=== PATIENT | female | born 1960 | race Caucasian/White ===

== ENCOUNTER 2017-11-02 17:04 | Emergency (ER) | payer MEDICAID ==
[~2017-11-02] VITALS: Ht 175.3 cm; Wt 64.4 kg
[~2017-11-02 17:04] MED LIST: AZIT250T PO; NAPR-1154 PO
[2017-11-02 17:11] VITALS: BP 159/76
[2017-11-02] MEDS ORDERED: PHE12.5T PO (19:10)
[2017-11-02] MEDS ORDERED: CHLO25CA10 PO (19:10)
[2017-11-02] MEDS ORDERED: chlordiazePOXIDE 25mg capsule PO ONE (19:10)
== END 2017-11-02 19:34 | disposition home or self-care (01) ==
LOC: ER 17:05
DX: F10.229 Alcohol dependence with intoxication, unspecified (principal); F17.200 Nicotine dependence, unspecified, uncomplicated; G89.29 Other chronic pain; Z88.8 Allergy status to other drugs, medicaments and biological substances; Z79.899 Other long term (current) drug therapy; Y90.9 Presence of alcohol in blood, level not specified
CPT/HCPCS: 99283

== ENCOUNTER 2019-02-15 17:59 | Emergency (ER) | payer MEDICAID ==
[~2019-02-15] VITALS: Ht 175.3 cm; Wt 76.8 kg
[~2019-02-15 17:59] MED LIST changes: +CHLO25CA10 PO; +PROM12.512 PO
[2019-02-15] MEDS ORDERED: ketorolac tromethamine 15mg/ml inj. IM ONE (18:40)
[2019-02-15] MEDS ORDERED: orphenadrine citrate 60mg/2ml inj. IM ONE (18:40)
[2019-02-15] MEDS ORDERED: NAPR-56 PO (18:51)
[2019-02-15] MEDS ORDERED: METH-360 PO (18:51)
[2019-02-15 19:06] VITALS: BP 118/65
== END 2019-02-15 19:08 | disposition home or self-care (01) ==
LOC: ER 18:00
DX: M54.41 Lumbago with sciatica, right side (principal); G89.29 Other chronic pain; F31.9 Bipolar disorder, unspecified; F10.99 Alcohol use, unspecified with unspecified alcohol-induced disorder; Z98.890 Other specified postprocedural states; Z88.1 Allergy status to other antibiotic agents; Z79.899 Other long term (current) drug therapy; Y90.9 Presence of alcohol in blood, level not specified
CPT/HCPCS: 96372; 99283; J1885; J2360

== ENCOUNTER 2019-05-16 10:32 | Emergency (ER) | payer MEDICAID ==
[~2019-05-16] VITALS: Ht 175.3 cm; Wt 75.0 kg
[~2019-05-16 10:32] MED LIST changes: +LIDOcaine 1% w/EPI 1:100,000 30ml vial (MDV) ONE; +METH-360 PO
[2019-05-16 10:44] VITALS: BP 166/90
== END 2019-05-16 13:00 | disposition home or self-care (01) ==
LOC: ER 10:32
DX: L72.3 Sebaceous cyst (principal); L02.01 Cutaneous abscess of face; G89.29 Other chronic pain; F17.200 Nicotine dependence, unspecified, uncomplicated; Z98.890 Other specified postprocedural states; Z88.1 Allergy status to other antibiotic agents
CPT/HCPCS: 10060; 99283

== ENCOUNTER 2020-07-27 20:45 | Emergency (ER) | payer MEDICAID ==
[~2020-07-27] VITALS: Ht 175.3 cm; Wt 77.3 kg
[~2020-07-27 20:45] MED LIST changes: -LIDOcaine 1% w/EPI 1:100,000 30ml vial (MDV) ONE
[2020-07-27 21:25] LABS: BASOPHILS # (AUTO) 0.1 X10'3 (0-0.2); BASOPHILS % (AUTO) 0.9 % (0-1); EOSINOPHILS # (AUTO) 0.2 X10'3 (0-0.9); EOSINOPHILS % (AUTO) 2.3 % (0-6); HEMATOCRIT 39.7 % (35.0-45.0); HEMOGLOBIN 13.9 g/dl (12.0-16.0); LYMPHOCYTES # (AUTO) 3.7 X10'3 (1.1-4.8); LYMPHOCYTES % (AUTO) 42.3 % (21-51); MEAN CORPUSCULAR HEMOGLOBIN 34.9 PG (27.0-31.0); MEAN CORPUSCULAR HGB CONC 35.1 g/dL (33.0-36.5); MEAN CORPUSCULAR VOLUME 99.4 FL (78-98); MEAN PLATELET VOLUME 8.4 FL (7.4-10.4); MONOCYTES # (AUTO) 0.7 X10'3 (0-0.9); MONOCYTES % (AUTO) 7.6 % (2-12); NEUTROPHILS # (AUTO) 4.1 X10'3 (1.8-7.7); NEUTROPHILS % (AUTO) 46.9 % (42-75); PLATELET COUNT 198 X10'3 (140-440); RED BLOOD COUNT 3.99 X10'6 (4.20-5.60); RED CELL DISTRIBUTION WIDTH 13.2 % (11.5-14.5); WHITE BLOOD COUNT 8.7 X10'3 (4.5-11.0)
[2020-07-27 21:29] LABS: ALBUMIN 3.9 G/DL (3.4-5.0); ALBUMIN/GLOBULIN RATIO 1.1 (1.1-1.5); ALKALINE PHOSPHATASE 80 IU/L (46-116); CHLORIDE 108 MMOL/L (99-107); ETHANOL 0.267 GM/DL (0.0-0.010); MAGNESIUM 1.8 MG/DL (1.5-2.4); TOTAL CARBON DIOXIDE 24.8 MMOL/L (24-32); TOTAL PROTEIN 7.6 G/DL (6.4-8.2)
[2020-07-27 21:56] LABS: ALANINE AMINOTRANSFERASE 153 U/L (12-78); ANION GAP 13 (8-16); ASPARTATE AMINO TRANSFERASE 146 U/L (10-37); BILIRUBIN,TOTAL 0.1 MG/DL (0.1-1.0); BLOOD UREA NITROGEN 11 MG/DL (7-18); BUN/CREATININE RATIO 15.3 (6.6-38.0); CALCIUM 8.9 MG/DL (8.5-10.1); CREATININE 0.72 MG/DL (0.40-0.90); GLUCOSE 97 MG/DL (70-104); POTASSIUM 3.6 MMOL/L (3.5-5.1); SODIUM 146 MMOL/L (135-145); eGFR 82 ML/MIN
--- NOTE | 2020-07-27 22:30 | NUR ---
Pt has no neuro deficits since arrival
[2020-07-27 23:05] VITALS: BP 158/87
== END 2020-07-27 23:08 | disposition home or self-care (01) ==
LOC: ER 20:45
DX: R51.9 Headache, unspecified (principal); F41.0 Panic disorder [episodic paroxysmal anxiety]; F10.129 Alcohol abuse with intoxication, unspecified; F31.9 Bipolar disorder, unspecified; R53.83 Other fatigue; R53.1 Weakness; G89.29 Other chronic pain; Z98.890 Other specified postprocedural states; Z72.89 Other problems related to lifestyle; Z88.1 Allergy status to other antibiotic agents; Z79.2 Long term (current) use of antibiotics; Z79.899 Other long term (current) drug therapy; Y90.0 Blood alcohol level of less than 20 mg/100 ml
CPT/HCPCS: 36415; 80053; 80320; 83735; 85025; 99283

== ENCOUNTER 2020-09-26 19:31 | Emergency (ER) | payer MEDICAID ==
[~2020-09-26] VITALS: Ht 172.7 cm; Wt 79.5 kg
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
[2020-09-26] MEDS ORDERED: ketorolac trometh. 30mg/ml inj. IM ONE (21:30)
[2020-09-26] MEDS ORDERED: HYDR-3965 PO (21:42)
--- NOTE | 2020-09-26 21:50 | NUR ---
Verbal order received from YUE Moyer for splint; applied by [employer].
[2020-09-26 22:02] VITALS: BP 142/81
== END 2020-09-26 22:07 | disposition home or self-care (01) ==
LOC: ER 19:31
DX: S52.512A Displaced fracture of left radial styloid process, initial encounter for closed fracture (principal); S80.211A Abrasion, right knee, initial encounter; S50.812A Abrasion of left forearm, initial encounter; S50.811A Abrasion of right forearm, initial encounter; T22.112A Burn of first degree of left forearm, initial encounter; G89.29 Other chronic pain; Z72.89 Other problems related to lifestyle; Z98.891 History of uterine scar from previous surgery; Z88.1 Allergy status to other antibiotic agents; Z79.2 Long term (current) use of antibiotics; Z79.899 Other long term (current) drug therapy; Y04.8XXA Assault by other bodily force, initial encounter; Y93.89 Activity, other specified; Y99.8 Other external cause status; Y92.89 Other specified places as the place of occurrence of the external cause
CPT/HCPCS: 29125; 73110; 99284; J1885

== ENCOUNTER 2020-09-30 11:59 | Emergency (ER) | payer MEDICAID ==
[~2020-09-30] VITALS: Ht 172.7 cm; Wt 77.3 kg
[~2020-09-30 11:59] MED LIST changes: +HYDR-3965 PO
[2020-09-30 12:04] VITALS: BP 137/77
[2020-09-30] MEDS ORDERED: ketorolac trometh. 30mg/ml inj. IM ONE (14:15)
--- NOTE | 2020-09-30 14:40 | NUR ---
[employer]EL[employer] AT BEDSIDE
[2020-09-30] MEDS ORDERED: HYDR-3965 PO (15:32)
== END 2020-09-30 15:38 | disposition home or self-care (01) ==
LOC: ER 11:59
DX: S52.592A Other fractures of lower end of left radius, initial encounter for closed fracture (principal); G89.29 Other chronic pain; F31.9 Bipolar disorder, unspecified; Z72.89 Other problems related to lifestyle; Z98.890 Other specified postprocedural states; Z88.1 Allergy status to other antibiotic agents; Z79.899 Other long term (current) drug therapy; Y04.8XXA Assault by other bodily force, initial encounter; Y93.89 Activity, other specified; Y92.89 Other specified places as the place of occurrence of the external cause; Y99.8 Other external cause status
CPT/HCPCS: 29125; 96372; 99283; J1885

== ENCOUNTER 2021-11-12 08:35 | Emergency (ER) | payer MEDICAID ==
[~2021-11-12] VITALS: Ht 172.7 cm; Wt 72.0 kg
[~2021-11-12 08:35] MED LIST changes: -HYDR-3965 PO
[2021-11-12 09:18] VITALS: BP 138/83
[2021-11-12] MEDS ORDERED: LIDOcaine 1% W/epiNEPHrine 1:100,000 20ml vial SQ ONE (10:15)
[2021-11-12] MEDS ORDERED: HYDR-3972 PO (14:24)
[2021-11-23] MEDS ORDERED: CETI10TA14 PO (17:40)
[2021-11-23] MEDS ORDERED: ALBU8.5H17 INH (17:40)
[2021-11-23] MEDS ORDERED: TIOT4MIS2 PO (17:40)
[2021-11-23] MEDS ORDERED: BUDE10.26 PO (17:40)
== END 2021-11-12 14:32 | disposition home or self-care (01) ==
LOC: ER 08:35
DX: S92.512A Displaced fracture of proximal phalanx of left lesser toe(s), initial encounter for closed fracture (principal); X58.XXXA Exposure to other specified factors, initial encounter; Y93.89 Activity, other specified; Y92.89 Other specified places as the place of occurrence of the external cause; Y99.8 Other external cause status
CPT/HCPCS: 28470; 73660; 99284

== ENCOUNTER 2021-11-25 09:04 | Day surgery (SDC) | payer MEDICAID ==
[2021-11-23 16:18] LABS: BASOPHILS # (AUTO) 0.1 X10'3 (0-0.2); BASOPHILS % (AUTO) 0.6 % (0-1); EOSINOPHILS # (AUTO) 0.1 X10'3 (0-0.9); EOSINOPHILS % (AUTO) 1.4 % (0-6); LYMPHOCYTES # (AUTO) 2.2 X10'3 (1.1-4.8); LYMPHOCYTES % (AUTO) 24.9 % (21-51); MEAN CORPUSCULAR HEMOGLOBIN 34.7 PG (27.0-31.0); MEAN CORPUSCULAR HGB CONC 34.1 g/dL (33.0-36.5); MEAN CORPUSCULAR VOLUME 101.7 FL (78-98); MEAN PLATELET VOLUME 8.9 FL (7.4-10.4); MONOCYTES # (AUTO) 0.7 X10'3 (0-0.9); MONOCYTES % (AUTO) 8.1 % (2-12); NEUTROPHILS # (AUTO) 5.8 X10'3 (1.8-7.7); PRE OP HEMATOCRIT 43.7 % (35.0-45.0); PRE OP HEMOGLOBIN 14.9 g/dL (12.0-16.0); PRE OP PLATELET COUNT 197 X10'3 (140-440); RED BLOOD COUNT 4.29 X10'6 (4.20-5.60); RED CELL DISTRIBUTION WIDTH 13.7 % (11.5-14.5)
[2021-11-23 16:20] LABS: ALBUMIN 3.7 G/DL (3.4-5.0); ALKALINE PHOSPHATASE 91 IU/L (46-116); BLOOD UREA NITROGEN 14 MG/DL (7-18); BUN/CREATININE RATIO 18.2 (6.6-38.0); CALCIUM 11.1 MG/DL (8.5-10.1); CHLORIDE 106 MMOL/L (99-107); CREATININE 0.77 MG/DL (0.40-0.90); PRE OP ANION GAP 6 (8-16); PRE OP BILIRUB, TOTAL 0.3 MG/DL (0.0-1.0); PRE OP GLUCOSE 101 MG/DL (70-104); PRE OP POTASSIUM 4.5 MMOL/L (3.4-5.1); PRE OP SODIUM 140 MMOL/L (135-145); TOTAL CARBON DIOXIDE 27.7 MMOL/L (24-32); TOTAL PROTEIN 7.5 G/DL (6.4-8.2); eGFR 76 ML/MIN
[2021-11-23 16:22] LABS: PRE OP ALT 170 U/L (30-65); PRE OP AST 214 U/L (10-37)
[2021-11-25] VITALS (8 sets, daily range): BP systolic 132–143; BP diastolic 76–83
[~2021-11-25] VITALS: Ht 172.7 cm; Wt 77.7 kg
[~2021-11-25 09:04] MED LIST changes: +ALBU8.5H17 INH; -AZIT250T PO; +BUDE10.26 PO; +CETI10TA14 PO; -CHLO25CA10 PO; -METH-360 PO; -NAPR-1154 PO; -PROM12.512 PO; +TIOT4MIS2 PO; +acetaminophen 325mg tablet PO ONE; +ceFAZolin inj. 2,000 MG in dextrose 5%-water 100 ML IV ONE; +celeCOXIB 100mg capsule PO ONE; +famotidine 20mg tablet PO ONE; +gabapentin 300mg capsule PO ONE; +metoclopramide 5 mg/ml inj IV ONE; +oxyCODONE SR 10mg (sust. release) tab -2 tabs (20mg) PO ONE; +ringers solution, lacted 1,000 ML IV SCH; +tranexamic acid inj. 1,000 MG in 0.7% saline 100 ML PMX IV ONE; +vancomycin 1,500 MG in NS 300ml IV soln IV ONE; +vancomycin/NS 1 GM in NS 250 ML IV ONE
[2021-11-25 10:27] LABS: PRE OP PARTIAL THROMB. TIME 24 SECONDS (22-32)
[2021-11-25] MEDS ORDERED: LIDOcaine 1% (10mg/ml) 2ml vial ONE (13:45)
[2021-11-25] MEDS ORDERED: sevoflurane 250ml liquid IH ONE (13:55)
[2021-11-25] MEDS ORDERED: midazolam 1 mg/ML 2ml injection ONE (14:04)
[2021-11-25] MEDS ORDERED: fentaNYL/PF 50MCG/1 ML 2ML syringe ONE (14:04)
[2021-11-25] MEDS ORDERED: LIDOcaine 2% (20mg/ml) 5ml vial ONE (14:05)
[2021-11-25] MEDS ORDERED: propofol inj 20 ML IV ONE (14:05)
[2021-11-25] MEDS ORDERED: BUPIVAcaine/PF 2.5 mg/ml (0.25%) 30ml vial ONE (14:29)
--- NOTE | 2021-11-25 14:47 | NUR ---
Received from OR via ST[facility], accompanied by Anesthesiologist BRIDGET and report given by Anesthesiolgist. PT IS AROUSABLE TO VOICE, NASAL CANNULA PLACED ON PATIENT. VITAL SIGNS STABLE
== END 2021-11-25 15:47 | disposition home or self-care (01) ==
LOC: PAS 09:04
PROVIDERS: ATTEND Orthopaedic Surgery
DX: S92.522A Displaced fracture of middle phalanx of left lesser toe(s), initial encounter for closed fracture (principal); J44.9 Chronic obstructive pulmonary disease, unspecified; Z72.89 Other problems related to lifestyle; Z88.1 Allergy status to other antibiotic agents; F17.210 Nicotine dependence, cigarettes, uncomplicated; Z79.899 Other long term (current) drug therapy; Z79.01 Long term (current) use of anticoagulants; W22.8XXA Striking against or struck by other objects, initial encounter; Y93.89 Activity, other specified; Y92.89 Other specified places as the place of occurrence of the external cause; Y99.8 Other external cause status
CPT/HCPCS: 28510; 36415; 80053; 82948; 85025; 85610; 85730; 93005; C1713; J0690; J2250; J2704; J3010; J3370; J3490; J7030; J7040; J7060; J7120; Z7506; Z7512; A4618; A6446; A6449; A7000

== ENCOUNTER 2023-01-25 16:51 | Emergency (ER) | payer MEDICAID ==
[~2023-01-25] VITALS: Ht 172.7 cm; Wt 81.8 kg
[~2023-01-25 16:51] MED LIST changes: -acetaminophen 325mg tablet PO ONE; -ceFAZolin inj. 2,000 MG in dextrose 5%-water 100 ML IV ONE; -celeCOXIB 100mg capsule PO ONE; -famotidine 20mg tablet PO ONE; -gabapentin 300mg capsule PO ONE; -metoclopramide 5 mg/ml inj IV ONE; -oxyCODONE SR 10mg (sust. release) tab -2 tabs (20mg) PO ONE; -ringers solution, lacted 1,000 ML IV SCH; -tranexamic acid inj. 1,000 MG in 0.7% saline 100 ML PMX IV ONE; -vancomycin 1,500 MG in NS 300ml IV soln IV ONE; -vancomycin/NS 1 GM in NS 250 ML IV ONE
[2023-01-25 17:07] VITALS: TEMP 97.5
--- NOTE | 2023-01-25 19:19 | NUR ---
informed by registration that the patient is going room to room complaining about staff. Approached the patient. She said room 13 needs a blanket. I asked her how she knew that and she said that room 10, and 13 and herself have been waiting for the doctor "who is just sitting over there for like an hour" Informed pt to please go back into her room. She said "I am" Yet she stands in the doorway.
[2023-01-25] MEDS ORDERED: ketorolac tromethamine 15mg/ml inj. IV ONE (20:25)
[2023-01-25] MEDS ORDERED: morphine 4 MG/ML inj SYRINge IV ONE (20:25)
[2023-01-25 20:49] LABS: BASOPHILS % (AUTO) 0.6 % (0-1); EOSINOPHILS # (AUTO) 0.1 X10'3 (0-0.9); EOSINOPHILS % (AUTO) 1.9 % (0-6); HEMATOCRIT 45.5 % (35.0-45.0); HEMOGLOBIN 15.6 g/dl (12.0-16.0); LYMPHOCYTES # (AUTO) 3.3 X10'3 (1.1-4.8); LYMPHOCYTES % (AUTO) 41.8 % (21-51); MEAN CORPUSCULAR HGB CONC 34.2 g/dL (33.0-36.5); MEAN CORPUSCULAR VOLUME 96.6 FL (78-98); MEAN PLATELET VOLUME 8.5 FL (7.4-10.4); MONOCYTES # (AUTO) 0.6 X10'3 (0-0.9); NEUTROPHILS # (AUTO) 3.8 X10'3 (1.8-7.7); NEUTROPHILS % (AUTO) 48.7 % (42-75); PLATELET COUNT 273 X10'3 (140-440); RED BLOOD COUNT 4.72 X10'6 (4.20-5.60); RED CELL DISTRIBUTION WIDTH 14.8 % (11.5-14.5); WHITE BLOOD COUNT 7.9 X10'3 (4.5-11.0)
[2023-01-25 21:03] LABS: ALANINE AMINOTRANSFERASE 70 U/L (12-78); ALBUMIN 4.2 G/DL (3.4-5.0); ALBUMIN/GLOBULIN RATIO 1.1 (1.1-1.5); ALKALINE PHOSPHATASE 73 IU/L (46-116); ANION GAP 13 (8-16); ASPARTATE AMINO TRANSFERASE 41 U/L (10-37); BILIRUBIN,TOTAL 0.3 MG/DL (0.1-1.0); BLOOD UREA NITROGEN 8 MG/DL (7-18); BUN/CREATININE RATIO 11.9 (10.0-20.0); C-REACTIVE PROTEIN 0.14 MG/DL (0.0-0.5); CALCIUM 10.1 MG/DL (8.5-10.1); CHLORIDE 102 MMOL/L (99-107); CREATININE 0.67 MG/DL (0.40-0.90); GLUCOSE 86 MG/DL (70-104); POTASSIUM 3.7 MMOL/L (3.5-5.1); SODIUM 138 MMOL/L (135-145); TOTAL CARBON DIOXIDE 23.4 MMOL/L (24-32); TOTAL PROTEIN 8.2 G/DL (6.4-8.2); eGFR 89 ML/MIN
[2023-01-25 21:04] VITALS: BP 167/97; PULSE 84; O2SAT 98
[2023-01-25 22:03] VITALS: RESP 16
== END 2023-01-25 23:29 | disposition home or self-care (01) ==
LOC: ER 16:52
DX: R51.9 Headache, unspecified (principal); I10 Essential (primary) hypertension; G89.29 Other chronic pain; M54.9 Dorsalgia, unspecified; F31.9 Bipolar disorder, unspecified; F17.200 Nicotine dependence, unspecified, uncomplicated; Z88.1 Allergy status to other antibiotic agents; Z79.899 Other long term (current) drug therapy; Z79.1 Long term (current) use of non-steroidal anti-inflammatories (NSAID); Z79.2 Long term (current) use of antibiotics
CPT/HCPCS: 36415; 70450; 80053; 85025; 85651; 86140; 96374; 96375; 99285; J1885; J2270; 99284

== ENCOUNTER 2023-10-21 18:06 | Emergency (ER) | payer MEDICARE, MEDICAID ==
[~2023-10-21] VITALS: Ht 172.7 cm; Wt 81.8 kg
[2023-10-21 18:35] VITALS: BP 142/87; PULSE 89; TEMP 98.4; O2SAT 96
[2023-10-21] MEDS ORDERED: ketorolac trometh. 30mg/ml inj. IM ONE (20:30)
[2023-10-21] MEDS ORDERED: ketorolac trometh inj. 60 MG/2 ML VIAL IM ONE (20:30)
[2023-10-21 20:39] VITALS: RESP 16
[2023-10-21] MEDS: ketorolac tromethamine 15mg/ml inj. IM ONE (20:39)
[2023-10-21] MEDS ORDERED: HYDR-3965 PO (20:56)
== END 2023-10-21 20:57 | disposition home or self-care (01) ==
LOC: ER 18:07
DX: S93.692A Other sprain of left foot, initial encounter (principal); I10 Essential (primary) hypertension; F12.90 Cannabis use, unspecified, uncomplicated; X58.XXXA Exposure to other specified factors, initial encounter; Z88.8 Allergy status to other drugs, medicaments and biological substances; Z79.899 Other long term (current) drug therapy; Y93.89 Activity, other specified; Y92.89 Other specified places as the place of occurrence of the external cause; Y99.8 Other external cause status
CPT/HCPCS: 71101; 73610; 73630; 96372; 99284; J1885